=== PATIENT | female | born 2005 | race Two or more races ===

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

== ENCOUNTER 2023-07-10 01:05 | Emergency (ER) | payer MEDICAID ==
[~2023-07-10 01:05] MED LIST: [UNRECOGNIZED DRUG - CODE] IM
== END 2023-07-10 01:29 | disposition left against medical advice (07) ==
LOC: ER 01:05 → EEVIPCON 01:05 → ER 01:25
DX: R39.198 Other difficulties with micturition (principal); Z53.21 Procedure and treatment not carried out due to patient leaving prior to being seen by health care provider